=== PATIENT | male | born 1990 | race Caucasian/White ===

== ENCOUNTER 2021-05-22 20:41 | Emergency (ER) | payer SELFPAY ==
[2021-05-22] MEDS ORDERED: PERCOCET 5-3251 EACH PO (23:56)
[2021-05-22] MEDS ORDERED: NAPROXEN500 MG PO (23:56)
== END 2021-05-23 00:04 | disposition home or self-care (01) ==
LOC: FER 20:41
DX: S52.042A Displaced fracture of coronoid process of left ulna, initial encounter for closed fracture (principal); S53.105A Unspecified dislocation of left ulnohumeral joint, initial encounter; F17.290 Nicotine dependence, other tobacco product, uncomplicated; Z88.1 Allergy status to other antibiotic agents; W55.22XA Struck by cow, initial encounter; Y92.830 Public park as the place of occurrence of the external cause
CPT/HCPCS: 73060; 73070; 73080; 73110; 73200; 96374; 96376; J1170